=== PATIENT | male | born 1980 | race Two or more races ===

== ENCOUNTER 2025-05-12 20:31 | Emergency (ER) | payer OTHER ==
[~2025-05-12] VITALS: Ht 180.3 cm; Wt 96.8 kg
[2025-05-12 20:34] VITALS: BP 148/101; PULSE 102; RESP 18; TEMP 100.2; O2SAT 98
[2025-05-12] MEDS ORDERED: MAGNESIUM SULFATE 2 GM, MVI, ADULT NO.1 WITH VIT K 10 ML, THIAMINE 100 MG, FOLIC ACID 1... IV ONE (22:00)
[2025-05-12] MEDS ORDERED: LORazepam 2 MG/ML VIAL IVP ONE (22:00)
== END 2025-05-12 22:32 | disposition left against medical advice (07) ==
LOC: EMS 20:31
DX: R53.1 Weakness (principal); Z53.21 Procedure and treatment not carried out due to patient leaving prior to being seen by health care provider
CPT/HCPCS: 93005; J3411; J3475; J3490; J7030